=== PATIENT | female | born 1975 | race Caucasian/White ===

== ENCOUNTER 2024-12-25 13:57 | Emergency (ER) | payer MEDICAID, BC, SELFPAY ==
[2024-12-25 14:08] VITALS: BP 127/82; PULSE 108; RESP 17; TEMP 36.2; O2SAT 95; BMI 28.3
[2024-12-25 14:26] LABS: Glucose Urine UA 3+ (Normal); Nitrate Urine Negative (Negative)
[2024-12-25 14:31] LABS: Add Urine Microscopic? YES
[2024-12-25 14:39] LABS: Specific Gravity, Urine 1.042 (1.005-1.030)
[2024-12-25 15:01] LABS: Respiratory Syncytial Virus Ce NEGATIVE (Negative); SARS-CoV-2 PCR NEGATIVE (Negative)
--- NOTE | 2024-12-25 15:41 | W.ED.ABDPA2 ---
HPI - Abdominal Pain General: Chief Complaint: Abdominal Pain Stated Complaint: fever, back/abdominal pain Time Seen by Provider: 12/25/24 15:41 History of Present Illness: This is a healthy 49-year-old female who presents emergency room with generalized abdominal pain, malaise some nausea and vomiting that started this morning. She has had some mid low back pain for about 3 weeks now she thinks after she fell out of her chair. No known fevers. She complains of some vague low pelvic pain. Related Data Previous Rx's ?Medication ?Instructions ?Recorded hydrocodone 5 mg-acetaminophen 325 1 tab PO Q6H PRN pain #20 tabs 12/25/24 mg tablet ondansetron 4 mg disintegrating 4 mg PO Q8H PRN nausea and 12/25/24 tablet vomiting #10 tabs polyethylene glycol 3350 17 17 g PO DAILY #510 grams 12/25/24 gram/dose oral powder (Miralax) Allergies Allergy/AdvReac Type Severity Reaction Status Date / Time No Known Allergies Allergy Verified 12/25/24 14:11 Review of Systems Narrative: Constitutional symptoms: Negative except as documented in HPI. Skin symptoms: Negative except as documented in HPI. Eye symptoms: Negative except as documented in HPI. ENMT symptoms: Negative except as documented in HPI. Respiratory symptoms: Negative except as documented in HPI. Cardiovascular symptoms: Negative except as documented in HPI. Gastrointestinal symptoms: Negative except as documented in HPI. Genitourinary symptoms: Negative except as documented in HPI. Musculoskeletal symptoms: Negative except as documented in HPI. Neurologic symptoms: Negative except as documented in HPI. Psychiatric symptoms: Negative except as documented in HPI. Endocrine symptoms: Negative except as documented in HPI. Physical Exam Narrative: EXAM NARRATIVE: General: Alert, no acute distress. Skin: Warm, dry. Head: Normocephalic, atraumatic. Neck: Supple, trachea midline. Eye: Extraocular movements are intact. Ears, nose, mouth and throat: mucosa moist. Cardiovascular: Regular, Normal peripheral perfusion. Respiratory: Lungs are clear to auscultation, respirations are non-labored, breath sounds are equal, Symmetrical chest wall expansion. Gastrointestinal: Soft, Nontender, Non distended Musculoskeletal: Normal ROM, no deformity. Neurological: Alert and oriented, No focal neurological deficit observed. Psychiatric: Cooperative, appropriate mood & affect. Course Vital Signs: Vital signs: Vital Signs Temperature 97.2 F L 12/25/24 14:08 Pulse Rate 108 H 12/25/24 14:08 Respiratory Rate 17 12/25/24 14:08 Blood Pressure 127/82 12/25/24 14:08 Pulse Oximetry 95 12/25/24 14:08 MDM - Abdominal Pain Medical Decision Making Medical decision making: Differential diagnosis for this patient with nausea and vomiting including but not limited to and based on the above HPI, review of systems and physical exam: Urinary tract infection. Appendicitis. Cholecystitis. Colitis. small bowel obstruction. crohn's flare. pancreatitis. gastritis. peptic ulcer. cyclic vomiting. Viral illness. Influenza. COVID. Orders placed to evaluate differential diagnosis based on the above differential, HPI and physical exam Lab Review: Laboratory results were reviewed and interpreted by myself the emergency room physician. No leukocytosis. No anemia. No renal failure. Urinalysis is negative for infection or blood. Flu COVID and RSV are negative. CT of the abdomen pelvis with contrast: No obvious acute process but there is a masslike density involving the right breast soft tissue. Also diffuse osteosclerotic disease that may be mets. Small pericardial effusion. This was reviewed and interpreted by myself the emergency room physician. I also reviewed the radiology report. Consultation: I spoke with Dr. Pina with oncology. He recommends a CT scan of the chest to help expedite things and he will follow-up with the patient in clinic. She will need mammogram and biopsies. CT of the chest with contrast: Bilateral breast tissue and skin abnormalities concerning for malignant disease. Bilateral axillary lymphadenopathy concerning for metastatic disease. Scattered pulmonary consolidations but given the lack of infectious symptoms may be neoplastic disease. Other findings and radiology review. This was reviewed and interpreted by myself the emergency room physician. I also reviewed the radiology report. I reviewed the patient's medical record. Reexamination: I spoke with the patient about this very difficult finding. Spoke with her and her . She expresses understanding. She did not appear acutely ill here today. No acute distress. No increased work of breathing. No altered mental status. She expresses understanding and she will seek follow-up Assessment and plan: Breast mass Possible bone metastases - Discharged home - Discussed plan with patient. Answered any questions. - Evaluation and treatment of this problem were appropriate in the emergency setting. Lab Data 12/25/24 16:23 12/25/24 16:23 Labs/Radiology: Radiology Impressions Abdomen/Pelvis CT 12/25/24 15:46 IMPRESSION: 1. No definite acute intra-abdominal or intrapelvic process. 2. Masslike density involving the right breast soft tissues. The patient can benefit from follow up with a mammogram. 3. Diffuse osseous sclerotic metastatic disease. This warrants investigation of a primary neoplasm . 4. Small pericardial effusion. Chest CT 12/25/24 17:23 IMPRESSION: 1. Bilateral breast tissue and skin abnormalities concerning for malignant disease. Clinical assessment and breast imaging workup is recommended. 2. Bilateral axillary lymphadenopathy concerning for metastatic disease. Sonographic assessment is recommended. 3. Scattered pulmonary consolidations, the largest anteriorly in the right lower lobe. The nonspecific radiographic appearance could represent atelectasis, pneumonia or neoplastic disease. 4. Left hilum and left lung calcifications indicating previous granulomatous disease infection. 5. Mild pericardial and right pleural effusions. 6. Osteosclerotic metastatic disease. Laboratory Results WBC 8.09 10^3/uL (3.29-11.43) 12/25/24 16:23 RBC 4.88 10^6/uL (3.85-5.65) 12/25/24 16:23 Hgb 14.50 g/dL (11.27-16.99) 12/25/24 16:23 Hct 41.0 % (36-47) 12/25/24 16:23 MCV 84.0 fl (85-98) L 12/25/24 16:23 MCH 29.7 pg (27-33) 12/25/24 16:23 MCHC 35.4 g/dL (30-55) 12/25/24 16:23 RDW 11.7 % (12.1-15.1) L 12/25/24 16:23 Plt Count 281 10^3/cmm (157-399) 12/25/24 16:23 MPV 10.2 fL (7.4-10.4) 12/25/24 16:23 Neut % (Auto) 77.9 % 12/25/24 16:23 Lymph % (Auto) 16.9 % 12/25/24 16:23 [place] % (Auto) 4.3 % 12/25/24 16:23 Eos % (Auto) 0.2 % 12/25/24 16:23 Baso % (Auto) 0.5 % 12/25/24 16:23 Neut # (Auto) 6.29 10^3/uL (1.8-7.7) 12/25/24 16:23 Lymph # (Auto) 1.4 10^3/uL (0.8-4.8) 12/25/24 16:23 [place] # (Auto) 0.4 10^3/uL (0.2-0.9) 12/25/24 16:23 Eos # (Auto) 0.0 10^3/uL (0.0-0.8) 12/25/24 16:23 Baso # (Auto) 0.0 10^3/uL (0.0-0.1) 12/25/24 16:23 Nucleated RBC % (auto) 0 % 12/25/24 16:23 Nucleated RBCs # 0.0 /100WBC 12/25/24 16:23 Sodium 140 mmol/L (136-145) 12/25/24 16:23 Potassium 3.7 mmol/L (3.5-5.1) 12/25/24 16:23 Chloride 102 mmol/L (98-107) 12/25/24 16:23 Carbon Dioxide 22 mmol/L (22-29) 12/25/24 16:23 Anion Gap 19.7 (5-19) H 12/25/24 16:23 BUN 11 mg/dL (6-20) 12/25/24 16:23 Creatinine 0.4 mg/dL (0.5-0.9) L 12/25/24 16:23 GFR Calculation 169.7 mL/min (90-130) H 12/25/24 16:23 Glucose 235 mg/dL (65-115) H 12/25/24 16:23 Calculated Osmolality 297 mOsm/kg (285-295) H 12/25/24 16:23 Calcium 9.1 mg/dL (8.5-10.5) 12/25/24 16:23 Total Bilirubin 0.8 mg/dL (0.15-1.2) 12/25/24 16:23 AST 17 U/L (0-32) 12/25/24 16:23 ALT 14 U/L (0-33) 12/25/24 16:23 Alkaline Phosphatase 113 U/L (35-105) H 12/25/24 16:23 Total Protein 6.6 g/dL (6.6-8.7) 12/25/24 16:23 Albumin 4.0 g/dL (3.5-5.2) 12/25/24 16:23 Globulin 2.6 g/dL (1.3-4.6) 12/25/24 16:23 Urine Color Yellow (Yellow) 12/25/24 14:13 Urine Appearance Clear (CLEAR) 12/25/24 14:13 Urine pH 5.0 (5-7) 12/25/24 14:13 Ur Specific [place] 1.042 (1.005-1.030) H 12/25/24 14:13 Urine Protein Negative (Negative) 12/25/24 14:13 Urine Glucose (UA) 3+ (Normal) H 12/25/24 14:13 Urine Ketones 3+ (Negative) H 12/25/24 14:13 Urine Blood Negative (Negative) 12/25/24 14:13 Urine Nitrate Negative (Negative) 12/25/24 14:13 Urine Bilirubin Negative (Negative) 12/25/24 14:13 Urine Urobilinogen 0.2 mg/dL (Negative) 12/25/24 14:13 Ur Leukocyte Esterase Negative (Negative) 12/25/24 14:13 Urine RBC 3-5 /hpf (0-2) 12/25/24 14:13 Urine WBC 0-5 /hpf (0-5) 12/25/24 14:13 Ur Squamous Epith Cells 0-5 /hpf (0-5) 12/25/24 14:13 Amorphous Sediment Not Reportable 12/25/24 14:13 Urine Bacteria Trace /hpf (NONE) 12/25/24 14:13 Hyaline Casts 1.21 /lpf 12/25/24 14:13 Influenza A (PCR) Negative (Negative) 12/25/24 14:13 Influenza Type B (PCR) Negative (Negative) 12/25/24 14:13 RSV (PCR) Negative (Negative) 12/25/24 14:13 SARS-CoV-2 (PCR) Negative (Negative) 12/25/24 14:13 All radiology interpretation(s) finalized by discharge Discharge Plan Discharge Patient Disposition: Home Clinical Impression: Abdominal pain, Breast mass, Bony sclerosis Condition: Stable Prescriptions: New hydrocodone-acetaminophen 5-325 mg tablet 1 tab PO Q6H PRN (Reason: pain) Qty: 20 0RF polyethylene glycol 3350 [Miralax] 17 gram/dose powder 17 g PO DAILY Qty: 510 0RF Rx Instructions: Take 1 scoop daily while taking pain medications. ondansetron 4 mg tablet,disintegrating 4 mg PO Q8H PRN (Reason: nausea and vomiting) Qty: 10 0RF Discharge Orders: Discharge ED (Routine); Ordered 12/25/24 Ordered By: aMnda Becerril Referrals: Johnson Pina MD [Hospitalist, Oncology] - 4-7 days Referral Note: Please call for a follow-up appointment. Discharge Diet: Usual diet Discharge Activity: Increase activity as tolerated Patient Instructions: Abdominal Pain (ED), Opioid Safety, Pain Management, Patient Portal & [place] Instructions Activity Restrictions/Additional Instructions: Thank you for choosing [facility] for your healthcare needs today. You have been screened and evaluated and felt safe for discharge. Health conditions do change or evolve sometimes and as such it is important that you follow up with your Primary Doctor to be re checked, 3-5 days is a general good time frame for follow up. You are always welcome to return to the ED for re assessment if your symptoms are worsening or you have new concerns Print Language: American Coding Level of Care Code ED Electronic [employer] for Shonna Chaves
--- NOTE | 2024-12-25 15:46 | CTR_ITS ---
PROCEDURE INFORMATION: Exam: CT Abdomen And Pelvis With Contrast Exam date and time: 12/25/2024 4:18 PM Age: 49 years old Clinical indication: Abdominal pain; Generalized TECHNIQUE: Imaging protocol: Computed tomography of the abdomen and pelvis with contrast. Radiation optimization: All CT scans at this facility use at least one of these dose optimization techniques: automated exposure control; mA and/or kV adjustment per patient size (includes targeted exams where dose is matched to clinical indication); or iterative reconstruction. Contrast material: OMNIPAQUE 350; Contrast volume: 100 ml; Contrast route: INTRAVENOUS (IV); COMPARISON: No relevant prior studies available. RADIATION DOSE METRICS: Total DLP (mGy-cm): 505.73 FINDINGS: Lungs: Bibasilar atelectasis and scarring. Consolidation of the right middle lobe. Heart: Small pericardial effusion. Diaphragm: Small hiatal hernia. Liver: Normal. No mass. Gallbladder and biliary ducts: Cholelithiasis. Pancreas: Normal. No ductal dilation. Spleen: Normal. No splenomegaly. Adrenal glands: Normal. No mass. Kidneys and ureters: Normal. No hydronephrosis. Stomach and bowel: No bowel obstruction. Appendix: No evidence of appendicitis. Intraperitoneal space: Unremarkable. No free air. No significant fluid collection. Vasculature: Unremarkable. No abdominal aortic aneurysm. Lymph nodes: Unremarkable. No enlarged lymph nodes. Urinary bladder: Unremarkable as visualized. Reproductive: Unremarkable as visualized. Bones/joints: Innumerable sclerotic lesions throughout the visualized osseous structures including the lumbar spine, pelvis, and proximal femurs. Soft tissues: Masslike density in the right breast soft tissues. Masslike density incompletely visualized involving the right breast soft tissues. CT/CT abdomen pelvis w con* [id number] IMPRESSION: 1. No definite acute intra-abdominal or intrapelvic process. 2. Masslike density involving the right breast soft tissues. The patient can benefit from follow up with a mammogram. 3. Diffuse osseous sclerotic metastatic disease. This warrants investigation of a primary neoplasm . 4. Small pericardial effusion.
[2024-12-25] MEDS: iohexol 350 mg/mL 500 mL Btl (per mL) IV ×2 (16:19→17:43)
[2024-12-25 16:28] LABS: Hematocrit 41.0 % (36-47); Hemoglobin 14.50 g/dL (11.27-16.99); Mean Corpuscular HGB Conc 35.4 g/dL (30-55); Mean Corpuscular Hemoglobin 29.7 pg (27-33); Mean Corpuscular Volume 84.0 fl (85-98); Nucleated Red Blood Cells % 0 %; Platelet Count 281 10^3/cmm (157-399); Red Blood Count 4.88 10^6/uL (3.85-5.65); White Blood Count 8.09 10^3/uL (3.29-11.43)
[2024-12-25 16:57] LABS: Alanine Aminotransferase 14 U/L (0-33); Albumin Level 4.0 g/dL (3.5-5.2); Alkaline Phosphatase 113 U/L (35-105); Anion Gap 19.7 (5-19); Aspartate Amino Transferase 17 U/L (0-32); Blood Urea Nitrogen 11 mg/dL (6-20); Calcium 9.1 mg/dL (8.5-10.5); Carbon Dioxide 22 mmol/L (22-29); Chloride 102 mmol/L (98-107); Creatinine Clr Calc Pharmacy 168.5510; Globulin 2.6 g/dL (1.3-4.6); Glucose 235 mg/dL (65-115); Osmolality Calculated 297 mOsm/kg (285-295); Potassium 3.7 mmol/L (3.5-5.1); Sodium 140 mmol/L (136-145); Total Protein 6.6 g/dL (6.6-8.7)
--- NOTE | 2024-12-25 17:23 | CTR_ITS ---
PROCEDURE INFORMATION: Exam: CT Chest With Contrast; Diagnostic Exam date and time: 12/25/2024 5:40 PM Age: 49 years old Clinical indication: Abnormal findings; Other: Abnormal CT ab/pv; Additional info: Abnormal abd CT TECHNIQUE: Imaging protocol: Diagnostic computed tomography of the chest with contrast. Radiation optimization: All CT scans at this facility use at least one of these dose optimization techniques: automated exposure control; mA and/or kV adjustment per patient size (includes targeted exams where dose is matched to clinical indication); or iterative reconstruction. Contrast material: OMNIPAQUE 350; Contrast volume: 75 ml; Contrast route: INTRAVENOUS (IV); COMPARISON: CT abdomen pelvis w con* [id number] 12/25/2024 4:18 PM RADIATION DOSE METRICS: Total DLP (mGy-cm): 275.24 FINDINGS: Lungs: 6.5 cm focus of consolidation representing the anterior segment of the right lower lobe. Associated bronchial occlusion in this region. 2 cm focus of subpleural consolidation medially in the right middle. 1.5 cm focus of subpleural parenchymal consolidation laterally in the left lower lobe. 7 mm calcification posterolaterally in the peripheral left lower lobe. No other nodules. An azygos lobe is incidentally noted. Pleural spaces: Mild right pleural effusion. Heart: Mild pericardial effusion. Mediastinal space: Mediastinal mass is not identified. Calcified left hilar nodes measuring up to 12 mm. Ill-defined soft tissue projects in the right hilum, without focal mass. Lymph nodes: 13 mm spiculated density in the left axilla, concerning for adenopathy. 20 x 11 mm right axillary lymph node. Vasculature: Unremarkable. No aortic aneurysm. Diaphragm: Small hiatal hernia. Bones/joints: Innumerable sclerotic densities throughout the osseous structures. Soft tissues: Asymmetric enlargement of the right retroareolar glandular parenchyma. Left breast demonstrates asymmetric parenchymal density medially, periareolar skin thickening, nipple retraction and a [address]/CT chest w con* [id number] IMPRESSION: 1. Bilateral breast tissue and skin abnormalities concerning for malignant disease. Clinical assessment and breast imaging workup is recommended. 2. Bilateral axillary lymphadenopathy concerning for metastatic disease. Sonographic assessment is recommended. 3. Scattered pulmonary consolidations, the largest anteriorly in the right lower lobe. The nonspecific radiographic appearance could represent atelectasis, pneumonia or neoplastic disease. 4. Left hilum and left lung calcifications indicating previous granulomatous disease infection. 5. Mild pericardial and right pleural effusions. 6. Osteosclerotic metastatic disease.
== END 2024-12-25 18:44 | disposition home or self-care (01) ==
PROVIDERS: Emergency Provider Emergency Medicine
DX: R10.9 Unspecified abdominal pain (principal); N63.10 Unspecified lump in the right breast, unspecified quadrant; I31.39 Other pericardial effusion (noninflammatory)
CPT/HCPCS: 71260; 74177; 80053; 81001; 85025; 87637; 99285